=== PATIENT | female | born 1970 | race Caucasian/White ===

== ENCOUNTER 2017-12-20 11:16 | Emergency (ER) | payer SELFPAY ==
--- NOTE | 2017-12-20 12:28 | RAD ---
THREE VIEWS RIGHT SHOULDER: DATE: 12/20/17. HISTORY: Right shoulder injury. The patient has right shoulder and right clavicle pain. FINDINGS: No fracture or dislocation is seen involving the right shoulder. The coracoclavicular and acromiocla vicular distances are within normal limits. IMPRESSION: No acute osseous abnormality. POS: [facility]
== END 2017-12-20 12:30 | disposition home or self-care (01) ==
LOC: SCSER 11:16
DX: S43.401A Unspecified sprain of right shoulder joint, initial encounter (principal); F17.210 Nicotine dependence, cigarettes, uncomplicated; Z79.899 Other long term (current) drug therapy; W18.30XA Fall on same level, unspecified, initial encounter

== ENCOUNTER 2018-06-13 14:58 | Emergency (ER) | payer SELFPAY ==
[2018-06-13] MEDS ORDERED: Ketorolac Tromethamine 30 MG/ML VIAL ONE (16:15)
[2018-06-13 16:35] LABS: Eosinophils 3 % (0-10); Hemoglobin 14.9 g/dL (12.0-16.0); Lymphocytes 60 % (21-51); MDiff Complete? YES; Mean Corpuscular HGB CONC 32.8 g/dL (32.0-36.0); Mean Corpuscular Hemoglobin 29.4 pg (27.0-31.0); Mean Corpuscular Volume 89.5 fL (78.0-98.0); Monocytes 2 % (0-10); Neutrophil 34 % (42-75); Platelet Count 289 thou/uL (130-400); Platelet Morphology Comment Appears Adequate; RBC Distribution Width 12.1 % (11.5-14.5); Reactive Lymphocytes 1 % (0-10); Red Blood Cell (RBC) Count 5.06 mill/uL (4.20-5.40); White Blood Cell (WBC) Count 13.7 thou/uL (4.8-10.8)
[2018-06-13 16:36] LABS: ALT (SGPT) 24 U/L (8-55); AST (SGOT) 17 U/L (5-34); Acetaminophen Less than 6.0 mcg/mL (10.0-30.0); Albumin 4.1 g/dL (3.5-5.0); Alcohol Less than 10 mg/dL (Less than 10); Alkaline Phosphatase 96 U/L (40-150); Anion Gap 15 mmol/L (10-20); BUN (Urea Nitrogen) 29 mg/dL (7.0-18.7); Bilirubin, Total 0.5 mg/dL (0.2-1.2); CK (CPK) 45 U/L (29-168); Calc. Creatinine Clearance 0 mL/min (70-130); Calcium 9.6 mg/dL (7.8-10.44); Carbon Dioxide 28 mmol/L (22-29); Chloride 96 mmol/L (98-107); Estimated GFR-MDRD 42; Globulin 2.7 g/dL (2.4-3.5); Glucose 95 mg/dL (70-105); Potassium 3.2 mmol/L (3.5-5.1); Protein, Total 6.8 g/dL (6.0-8.3); Salicylate Less than 8.0 mg/dL (15.0-30.0); Sodium 136 mmol/L (136-145)
--- NOTE | 2018-06-13 16:47 | CT ---
CT BRAIN: 06/13/17 HISTORY: Fall. Syncopal episode. Patient with history of drug dependency. Trauma. Noncontrast enhanced CT images of the brain obtained. The brain is unremarkable. No evidence of intracranial masses, hemorrhages, or contusions seen. Ventr icles are of normal size. IMPRESSION: Normal CT brain. POS: [facility]
--- NOTE | 2018-06-13 16:50 | CT ---
CT IMAGES CERVICAL SPINE 06/13/18 HISTORY: Trauma. Neck pain. Fall. The images are obtained with coronal and sagittal reconstructions. CT images demonstrate disc space height loss with anterior and posterior osteophytes at C4-5, C5-6 a nd C6-7. Findings compatible with changes of spondylosis. No evidence of acute cervical spine fractur e seen. The neural foramen are patent. IMPRESSION: Extensive mid and lower cervical changes of spondylosis. No evidence of acute cervical spine fracture is seen. No evidence of subluxation seen. POS: [facility]
--- NOTE | 2018-06-13 16:54 | RAD ---
AP VIEW CHEST: 06/13/18 HISTORY: Fall. Syncope. AP portable view chest is obtained. EKG leads seen over the chest. Surgical clips seen in the gallbla dder fossa. The lungs are well aerated. No evidence of active intrathoracic disease seen. No evidence of effusions, pneumonia, or pneumothorax seen. IMPRESSION: Unremarkable AP view chest. POS: [facility]
[2018-06-13 17:25] LABS: Bilirubin Small (Negative); Blood, Urine Moderate (Negative); Clarity Cloudy (Clear); Glucose, Urine (Dipstick) Negative (Negative); Leukocyte Moderate (Negative); Nitrite Negative (Negative); Protein, Urine (Dipstick) Trace mg/dL (Neg-Trace); Urobilinogen 0.2 mg/dL (0.2-1.0); pH, Urine 5.5 (5.0-9.0)
[2018-06-13 17:33] LABS: Bacteria/HPF 4+ HPF (None Seen); Hyaline Casts/LPF 0-3 HYALINE CAST LPF (0-3 Hyaline); Renal Epithelial 0-3 HPF (0-3); Squamous Epithelial 0-3 HPF (0-3)
[2018-06-13 17:34] LABS: Amphetamine Not Detected (NotDetected); Barbiturates Screen Not Detected (NotDetected); Benzodiazepine Screen Detected (NotDetected); Cocaine Metabolite Screen Not Detected (NotDetected); Medtox Control Line Valid? VALID (VALID); Methadone Not Detected (NotDetected); Methamphetamine Not Detected (NotDetected); Opiate Screen Detected (NotDetected); Oxycodone Screen Not Detected (NotDetected); Phencyclidine (PCP) Not Detected (NotDetected); THC/Cannabinoid Screen Not Detected (NotDetected); Tricyclic Screen Not Detected (NotDetected)
== END 2018-06-13 17:59 | disposition home or self-care (01) ==
LOC: SCSER 14:58
DX: N39.0 Urinary tract infection, site not specified (principal); F17.210 Nicotine dependence, cigarettes, uncomplicated; Z79.899 Other long term (current) drug therapy; Z79.891 Long term (current) use of opiate analgesic
CPT/HCPCS: 36415; 51701; 70450; 71045; 72125; 80053; 80306; 80307; 81003; 81015; 82550; 84484; 85025; 87077; 87086; 87186; 93005; 96361; 96374; A4353; J1885

== ENCOUNTER 2018-10-09 21:00 | Emergency (ER) | payer SELFPAY ==
[2018-10-09] MEDS ORDERED: Lidocaine Viscous Sol 2% 15 ml UD Cup ONE (21:13)
[2018-10-09] MEDS ORDERED: Lidocaine 2% Jelly 5 ML TUBE ONE (21:14)
[2018-10-09] MEDS ORDERED: Acetaminophen 500 MG TAB ONE (21:41)
== END 2018-10-09 21:47 | disposition home or self-care (01) ==
LOC: SCSER 21:00
DX: T16.1XXA Foreign body in right ear, initial encounter (principal); H60.91 Unspecified otitis externa, right ear; F17.210 Nicotine dependence, cigarettes, uncomplicated; Z79.899 Other long term (current) drug therapy
CPT/HCPCS: 99282

== ENCOUNTER 2018-12-20 01:20 | Emergency (ER) | payer BC | END 2018-12-20 01:38 | disposition home or self-care (01) | LOC: SCSER 01:20 | DX: N64.4 Mastodynia (principal); F17.210 Nicotine dependence, cigarettes, uncomplicated | CPT/HCPCS: 99283 ==

== ENCOUNTER 2020-04-19 20:36 | Observation (INO) | payer SELFPAY ==
[2020-04-19] MEDS ORDERED: Ondansetron PF 4 MG/2 ML Vial IVP PRN (22:50)
[2020-04-19] MEDS ORDERED: Fentanyl 100 MCG/2 ML VIAL SLOW IVP PRN (22:50)
[2020-04-19] MEDS: Ketorolac Tromethamine 30 MG/ML VIAL IVP PRN (23:08)
[2020-04-19] MEDS: Fentanyl 100 MCG/2 ML VIAL SLOW IVP PRN (23:09)
[2020-04-19] MEDS: Sodium Chloride 0.9% 1,000 ML IV SCH (23:12)
[2020-04-19] MEDS ORDERED: DULoxetine 60 MG CAP PO SCH (23:45)
[2020-04-19] MEDS ORDERED: Gabapentin 300 MG CAP PO SCH (23:45)
[2020-04-19] MEDS ORDERED: tiZANidine HCl 4 MG TAB PO SCH (23:45)
[2020-04-20] MEDS: Piperacillin/Tazobactam 3.375 GM in Sodium Chloride 0.9% 100 ML IVPB SCH ×2 (00:05→05:29)
[2020-04-20] MEDS: Fentanyl 100 MCG/2 ML VIAL SLOW IVP PRN ×3 (01:03→07:21)
[2020-04-20] MEDS: Ketorolac Tromethamine 30 MG/ML VIAL IVP PRN (05:28)
[2020-04-20 07:22] LABS: SARS-CoV-2 NAA Rapid Test Not Detected (NotDetected)
--- NOTE | 2020-04-20 08:09 | PDOC.GSPN ---
Surgery Progress Note: Subj - Subjective Narrative: Ms. Souza is a 49 year old female with a PMHx of Pagets disease of the breast and diet controlled DM2 who presents for evaluation of abdominal pain x 2 days. She reports that 2 days ago she developed generalized abdominal pain that gradually worsened and localized to the LLQ. She then developed nausea and vomiting yesterday. She has been unable to eat or drink secondary to her nausea. Rates her pain at 7/10 currently. Denies any fever, hematemesis, change in bowel habits, CP, SOB, cough, dysuria. Due to her symptoms, she went to an urgent care facility where she was diagnosed with appendicitis. Surgery Progress Note: Obj - Vital signs Vital signs: Vital Signs - Most Recent Temp Pulse Resp BP Pulse Ox 98.8 F 102 H 20 102/64 96 04/20/20 03:01 04/20/20 03:01 04/20/20 03:01 04/20/20 03:01 04/20/20 03:01 - Physical Exam General: no distress, well developed, well nourished, moderate pain Cardiovascular: regular rate and rhythm, no murmur Respiratory: clear to auscultation, normal respiratory effort Abdomen: soft, nondistended, decreased bowel sounds, tender (LLQ) Psychiatric: memory intact, speech is normal Surgery Progress Note: Results - Labs Lab results: Laboratory Results - last 12 hr 04/19/20 22:20 SARS-CoV-2 Rap RNA(RT-PCR) Not Detected Surgery Progress Note: A/P - Plan Plan: Patient is scheduled for a laprascopic appendectomy today. Discussed indication, risks, benefits, outcomes. Patient agrees to plan. She has received piperacillin/tazobactam for antibiotic prophylaxis, fentanyl and toradol for pain, and zofran for nausea. Her partner is able to pick her up after surgery. She was also given the influenza and Pneumovax vaccines. Addendum - Physician - Physician Attestation Date/Time: 04/24/201815 I personally performed or re-performed the physical examination and medical decision making. I have verified all student documentation or findings, including history, physical exam and/or medical decision making.
[2020-04-20] MEDS: Sodium Chloride 0.9% 1,000 ML IV SCH (08:48)
[2020-04-20] MEDS ORDERED: Gabapentin 300 MG CAP PO SCH (09:00)
[2020-04-20] MEDS ORDERED: tiZANidine HCl 4 MG TAB PO SCH (09:00)
[2020-04-20] MEDS ORDERED: Fentanyl 100 MCG/2 ML VIAL ONE ×5 (09:01→13:06)
[2020-04-20] MEDS ORDERED: Ketorolac Tromethamine 30 MG/ML VIAL ONE (09:28)
[2020-04-20] MEDS ORDERED: Succinylcholine 200 MG/10 ml SYRINGE FS ONE (09:28)
[2020-04-20] MEDS ORDERED: Rocuronium Bromide 10 MG/ML (10ML VIAL) ONE (09:28)
[2020-04-20] MEDS ORDERED: ePHEDrine 50 MG/ML VIAL ONE (09:28)
[2020-04-20] MEDS ORDERED: Glycopyrrolate 0.2 MG/ML 5 ML SYRINGE ONE (09:28)
[2020-04-20] MEDS ORDERED: Ondansetron PF 4 MG/2 ML Vial ONE (09:28)
[2020-04-20] MEDS ORDERED: PROPOFOL 200 MG/20 ML VIAL ONE (09:28)
[2020-04-20] MEDS ORDERED: Lidocaine 1% PF 5 ML VIAL ONE (09:28)
[2020-04-20] MEDS ORDERED: Dexamethasone 20 MG/5 ML VIAL ONE (09:28)
[2020-04-20] MEDS ORDERED: Bupivacaine 0.25% HCL 30 ML VIAL ONE (09:55)
[2020-04-20] MEDS ORDERED: EPINEPHrine 1 MG/ML AMP ONE (09:55)
[2020-04-20] MEDS ORDERED: Promethazine HCl 25 MG/ML VIAL IM PRN ×2 (11:02→11:19)
[2020-04-20] MEDS ORDERED: Promethazine HCl 25 MG/ML VIAL SLOW IVP PRN (11:02)
[2020-04-20] MEDS ORDERED: Ondansetron HCl/PF 4 MG/2 ML Vial IVP PRN (11:02)
[2020-04-20] MEDS ORDERED: HYDROmorphone 2 MG/ML VIAL SLOW IVP PRN (11:02)
[2020-04-20] MEDS ORDERED: hydrALAZINE 20 MG/ML VIAL SLOW IVP PRN (11:19)
[2020-04-20] MEDS ORDERED: Dextrose 50% Abboject 50 ML SYRINGE SLOW IVP PRN (11:19)
[2020-04-20] MEDS ORDERED: Dextrose 5% in Water 1,000 ML IV PRN (11:19)
[2020-04-20] MEDS ORDERED: Ondansetron PF 4 MG/2 ML Vial IVP PRN (11:19)
[2020-04-20] MEDS ORDERED: HYDROcodone/Acetaminophen 10/325 mg Tablet PO PRN (11:19)
[2020-04-20] MEDS ORDERED: Fentanyl 100 MCG/2 ML VIAL SLOW IVP PRN ×2 (11:21)
[2020-04-20] MEDS ORDERED: Sodium Chloride 0.9% 1,000 ML IV SCH (11:30)
[2020-04-20] MEDS ORDERED: HYDROmorphone 2 MG/ML VIAL ONE (12:14)
[2020-04-20 13:26] VITALS: BP 101/46; TEMP 97.4
[2020-04-20] MEDS ORDERED: Famotidine 20 MG TAB PO SCH (21:00)
[2020-04-20] MEDS ORDERED: Famotidine/PF 20 mg/2ml Vial SLOW IVP SCH (21:00)
[2020-04-20] MEDS ORDERED: DULoxetine 60 MG CAP PO SCH (21:00)
[2020-04-20] MEDS ORDERED: FLU VACC QS2020-21(6MOS UP)/PF 60 MCG/0.5 ML SYRINGE IM ONE (21:00)
--- NOTE | 2020-04-21 13:48 | OP ---
DATE OF PROCEDURE: 04/20/2020 PREOPERATIVE DIAGNOSIS: Acute appendicitis. POSTOPERATIVE DIAGNOSIS: Acute appendicitis. PROCEDURE PERFORMED: Laparoscopic appendectomy. ANESTHESIA: General. ESTIMATED BLOOD LOSS: Minimal. COMPLICATIONS: None. SPECIMENS: Appendix. FINDINGS: Appendicitis. DESCRIPTION OF PROCEDURE: The patient was taken to the operating room and laid supine on the operating room table. After general anesthetic was obtained, the abdomen was prepped and draped in a sterile fashion. A Morgan catheter had been placed. A curved incision was made below the umbilicus, cautery was used to dissect down to and score the fascia. Abdominal cavity was entered bluntly using a Katy clamp. Holding stitch of PDS was placed on each side of fascia. Reema trocar was placed. High-flow pneumoperitoneum was obtained. A suprapubic 5-mm port and left lower quadrant 5-mm port were placed under direct visualization. Cecum was rolled over to reveal acute appendicitis. A window was made at the base of the appendix and mesoappendix. Laparoscopic stapler was fired across the base of appendix. A vascular reload fired across the mesoappendix. Appendix was placed in an EndoCatch bag and brought out through the Reema. There was no bleeding in the right lower quadrant. It was irrigated using sterile saline. All port sites were infiltrated using local anesthetic. All ports were removed under camera visualization. Pneumoperitoneum was let down. PDS was used to close the fascial defect below the umbilicus. All incisions were irrigated and closed using 4-0 Monocryl and Dermabond. The patient was sent to Recovery in stable condition. All instrument counts, needle counts, and lap counts were correct. Job ID: [id number]
--- NOTE | 2020-04-21 13:48 | DIS ---
DATE OF ADMISSION: 04/19/2020 DATE OF DISCHARGE: 04/20/2020 ADMIT DIAGNOSIS: Acute appendicitis. DISCHARGE DIAGNOSIS: Acute appendicitis. PROCEDURE: Laparoscopic appendectomy by Dr. Reynolds without complication. CONDITION ON DISCHARGE: Improved. STAFF: Dr. Reynolds. HOSPITAL COURSE: See hospital chart for details of hospitalization. Job ID: [id number]
--- NOTE | 2020-04-21 19:01 | HP ---
CHIEF COMPLAINT: Abdominal pain. HISTORY OF PRESENT ILLNESS: This is a ___53 yo female, admitted to my service overnight from [facility], described diffuse abdominal pain for 24 hours, became more localized to the right lower quadrant. Pain is described as sharp, 8/10, associated with nausea, but no vomiting. No change in stools. No dysuria. She has never had this pain before. CT scan reveals acute appendicitis. PAST MEDICAL HISTORY: Fibromyalgia. PAST SURGICAL HISTORY: Includes cholecystectomy. MEDICATIONS: 1. Gabapentin. 2. Cymbalta. ALLERGIES: NO KNOWN DRUG ALLERGIES. SOCIAL HISTORY: She smokes. No alcohol or other drugs. REVIEW OF SYSTEMS: Ten-system review of systems is otherwise negative expect as described above. PHYSICAL EXAMINATION: HEENT: Sclerae anicteric. Oropharynx clear. NECK: No lymphadenopathy. CHEST: Clear. HEART: Regular rate. ABDOMEN: Soft. Tender in the right lower quadrant with localized guarding without rebound. EXTREMITIES: No ischemia or edema to extremities. DIAGNOSTIC STUDIES: CT scan shows acute appendicitis. ASSESSMENT: 1. Acute appendicitis. 2. Fibromyalgia/chronic pain. PLAN: Laparoscopic appendectomy. Risks, benefits, and alternatives discussed with the patient. 30 minutes spent in review of labs, x-rays, and in discussion. Job ID: [id number] [id number]
== END 2020-04-20 15:35 | disposition home or self-care (01) ==
LOC: 3SE 22:38
PROVIDERS: ADMIT Surgery; ATTEND Surgery
PROC: 0DTJ4ZZ Resection of Appendix, Percutaneous Endoscopic Approach (ICD-10-PCS; principal; 2020-04-20)
DX: K35.80 Unspecified acute appendicitis (principal); M79.7 Fibromyalgia; F17.200 Nicotine dependence, unspecified, uncomplicated; E11.9 Type 2 diabetes mellitus without complications; Z79.899 Other long term (current) drug therapy; Z20.822 Contact with and (suspected) exposure to COVID-19
CPT/HCPCS: 87635; 88304; 96365; 96375; 96376; G0378; J0171; J1100; J1170; J1885; J2405; J2543; J2704; J3010; J3490; S0020; U0002; U0003; U0005